=== PATIENT | male | born 2000 | race Caucasian/White ===

== ENCOUNTER 2021-06-22 12:14 | Emergency (ER) | payer OTHER, SELFPAY ==
[2016-01-20 10:18] VITALS: O2SAT 99
[2021-06-22 12:19] VITALS: BP 122/64; RESP 16; TEMP 37.1
--- NOTE | 2021-06-22 13:02 | ED.GENADUL_ITS ---
Discharge Plan Disposition Patient Disposition: HOME Condition: Good Discharge Details Clinical Impression: Hand laceration Primary Care Provider: Chacha Jimenez ED Provider: Windy Rivas Home Meds and New Rx's Prescriptions: No Action No Known Home Meds RF: 0 Discharge Instructions Instructions: Laceration (ED) Additional Instructions: Keep wound clean and dry Try not to bend your fingers, keep covered at work and remove dressing at night secondary dry Keep dry for the next 24 hours after that you may shower but do not submerge your hand in water until sutures are removed Recommend suture removal in 11 to 12 days With spreading redness, fever, worsening pain, return to the emergency room for reevaluation Discharge Data Discharge Date/Time-TO BE ENTERED AT DEPARTURE: 06/22/21 13:19 Medical Decision Making pulse 68, 02 98% Patient appears well, tolerated procedure without incident Suture removal in 11 to 12 days recommended Wound stressed by nursing staff Return precautions discussed and patient understanding HPI General Mode of arrival: ambulatory . Date/Time Provider Initiated Documentation: 06/22/21 12:29 . Limitations to Documentation: no limitations . Information obtained by: patient . HPI Narrative: This 21-year-old male presents with laceration to left hand x3 that accidentally happened while installing heater. Denies strength or sensation change. Tetanus reportedly up-to-date denies history of coagulopathy Related Data Home Medications Medication Instructions Recorded Confirmed Unknown [No Known Home Meds] 06/22/21 06/22/21 Allergies Allergy/AdvReac Type Severity Reaction Status Date / Time No Known Allergies Allergy Verified 06/22/21 12:27 General Stated Complaint: Laceration PRADEEP: 3 Review of Systems Narrative: Review of systems negative x3 aside from where indicated in HPI PFSH Medical History (Updated 06/22/21 @ 13:05 by LUIS CARLOS Paz) Abdominal discomfort in left upper quadrant (01/23/16) Acute respiratory distress syndrome (ARDS) (99) Anxiety (01/23/16) Asthma (06/29/13) exercise induced/ mild At high risk for ineffective coping (01/23/16) Back complaints (03/07/16) Unintended weight loss (02/01/16) Varicocele Social History Smoking/Tobacco Use Status: Former Tobacco Use Smoking risk assessment performed?: Yes Alcohol Intake: current Alcohol Intake frequency: a few times a week Drug use: Socially Do you feel safe at home: Yes Do you feel safe in your relationship?: Yes Exam Const General: healthy appearing Extrem Hand/finger images: 1. 2. 3. Other: Capillary refill intact distally, strength and sensation intact, Course Vital Signs Vital signs: Vital Signs Temperature 37.1 C 06/22/21 12:19 Respiratory Rate 16 06/22/21 12:19 Blood Pressure 122/64 06/22/21 12:19 Temperature 37.1 C 06/22/21 12:19 Temperature Source Skin 06/22/21 12:19 Respiratory Rate 16 06/22/21 12:19 Respiratory Effort 06/22/21 12:29 Blood Pressure 122/64 06/22/21 12:19 Blood Pressure Position Sitting 06/22/21 12:19 Oxygen Delivery Method Room Air 06/22/21 12:19 Oxygen Flow Rate 0 06/22/21 12:19 Pain Level 3 06/22/21 12:19 Procedures Laceration Laceration 1: Site: hand Size (cm): 5 Description: linear Depth: simple, single layer Local Anesthetic: Lidocaine 1% Amount of anesthesia used (mL): 5 Pre-repair: wound explored Skin layer closed with: nylon Size (cm): 4-0 Number of sutures: 7 Technique: simple, interrupted
[2021-06-22 13:18] VITALS: BP 122/64; RESP 16; TEMP 37.1
== END 2021-06-22 13:19 | disposition home or self-care (01) ==
PROVIDERS: Emergency Provider Physician Assistant; PCP Family Medicine
DX: S69.92XA Unspecified injury of left wrist, hand and finger(s), initial encounter (principal); S61.412A Laceration without foreign body of left hand, initial encounter; W26.8XXA Contact with other sharp object(s), not elsewhere classified, initial encounter; Y99.0 Civilian activity done for income or pay
CPT/HCPCS: 12002

== ENCOUNTER 2021-11-15 13:45 | Emergency (ER) | payer OTHER, SELFPAY ==
[2016-01-20 10:18] VITALS: O2SAT 99
[2021-11-15 13:53] VITALS: BP 137/77; PULSE 63; RESP 16; TEMP 36.8; O2SAT 98
--- NOTE | 2021-11-15 13:55 | W.ED.GENAD ---
Discharge Plan Disposition Patient Disposition: HOME Condition: Stable Discharge Details Clinical Impression: Irritation of right eye Primary Care Provider: Cristian Altamirano ED Provider: Tita Real Home Meds and New Rx's Prescriptions: No Action No Known Home Meds RF: 0 Discharge Instructions Instructions: Eye Pain (ED) Additional Instructions: There was no obvious foreign body or abrasion to your eye today. It is possible you had a foreign body in your eye today which caused irritation of your eyelid mucosa which may be the source of your discomfort at this time. It is recommended that you can apply cool compresses to the area a few times daily for 20 minutes at a time. You were given erythromycin to go to apply 4 times daily in the right eye for the next 5 days. Call [facility] today or on their next available day to schedule a follow-up appointment for re-evaluation. Return immediately to the emergency department if you develop any worsening or new concerning symptoms. Referrals: [facility] [Outside] Discharge Data Discharge Physician: Tita Real Medical Decision Making 21-year-old male presents for foreign body sensation to his right upper eyelid after working with a blower with dust at work prior to arrival. Denies blurry vision or use of contacts. Right eye conjunctival injection. With eyelid eversion, no obvious foreign body. Upon further inspection of the mucosa of the right upper inner eyelid, there appears to be a 1 mm white papule with surrounding tenderness and mucosal injection. This appears too smooth and rounded to be a foreign body and appears more c/w papule. Suspect patient may have rubbed the area and caused inflammation and irritation of the mucosa. Attempted to remove with cotton swab and 18-gauge needle but unsuccessful and caused minimal bleeding. There was also no obvious corneal abrasion with fluorescein staining. The area was then flushed with BSS. Discussed with patient that this appears more consistent with local eyelid inflammation and irritation. Tetanus up-to-date. Erythromycin ointment applied and given the tube to go. Advised to follow-up with [facility] for reevaluation. Usual and customary return precautions given prior to discharge. Medical Records Medical records reviewed: Yes I reviewed the patient's medical records. HPI General Mode of arrival: ambulatory. Date/Time Provider Initiated Documentation: 11/15/21 13:51. Limitations to Documentation: no limitations. Information obtained by: patient. HPI Narrative: Pt is a 21yo M who presents to the ED with a complaint of foreign body sensation since this morning at work when he was working with dust and using a blower wearing safety goggles and felt something go into his right eye. He states he rubbed underneath his glasses and the sensation became worse. He states he thought he saw a foreign body underneath his right upper eyelid and attempted to remove it with tweezers but was unsuccessful. He states he is unsure of his tetanus status. He denies any blurry vision. He does not wear contacts or glasses. Related Data Home Medications Medication Instructions Recorded Confirmed Unknown [No Known Home Meds] 06/22/21 11/15/21 Allergies Allergy/AdvReac Type Severity Reaction Status Date / Time No Known Allergies Allergy Verified 11/15/21 13:55 General Stated Complaint: EyeProblem PRADEEP: 4 Review of Systems All systems reviewed & are unremarkable except as noted in HPI and below Constitutional Constitutional: Reports as per HPI, Denies chills and Denies fever(s) Eyes Eyes: Denies blurry vision and Reports other (foreign body ) ENT Ears, Nose, Mouth, and Throat: Denies dizziness, Denies sore throat and Denies throat swelling Cardiovascular Cardiovascular: Denies chest pain and Denies dyspnea Respiratory Respiratory: Denies cough and Denies dyspnea Gastrointestinal Gastrointestinal: Denies abdominal pain, Denies diarrhea and Denies vomiting Genitourinary Genitourinary: Denies hematuria and Denies dysuria Musculoskeletal Musculoskeletal: Denies back pain and Denies numbness Integumentary/Breasts Skin/Breast: Denies lesions and Denies rash Neurologic Neurologic: Denies dizziness, Denies localized weakness and Denies numbness Allergic/Immunologic Allergic/Immunologic: Denies throat swelling PFSH All Active Problems (Updated 11/15/21 @ 14:42 by Tita Real DO) Hand laceration (Acute) Irritation of right eye (Acute) Varicocele (Acute) Anxiety (Chronic 01/23/16) At high risk for ineffective coping (Acute 01/23/16) Back complaints (Chronic 03/07/16) Social History Smoking/Tobacco Use Status: Former Tobacco Use Smoking risk assessment performed?: Yes Alcohol Intake: current Alcohol Intake frequency: a few times a week Drug use: Socially Substance use type: marijuana Do you feel safe at home: Yes Do you feel safe in your relationship?: Yes Exam Const General: cooperative, healthy appearing and no acute distress [facility] Head: normal to inspection Ears: hearing grossly normal bilaterally and external ears normal Mouth: oral mucosae normal Eyes General: appearance normal, both eyes and all related structures Periorbital: periorbital findings normal Conjunctivae: conjunctival abnormality right conjunctival injection diffuse Sclera: sclerae normal Cornea: corneas normal Pupils: PERRL EOM: EOM intact bilaterally Eyes/upper lids images: 1. 1 mm circular smooth white appearing papule underneath the right lateral upper eyelid. There is surrounding mucosal injection. There is no obvious foreign body with additional eyelid eversion. Neck Neck: normal visual inspection Resp Effort & Inspection: normal respiratory effort and able to speak in complete sentences Cardio Rate: regular rate Skin General skin exam: no rashes or lesions noted Neuro General: patient alert, patient awake and patient oriented x3 Motor: muscle tone normal throughout Extrem General: normal to inspection and full ROM Psych Appearance: grossly normal Affect: normal affect Course Vital Signs Vital signs: Vital Signs Temperature 98.2 F 11/15/21 13:53 Pulse 63 11/15/21 13:53 Respiratory Rate 16 11/15/21 13:53 Blood Pressure 137/77 11/15/21 13:53 Pulse Oximetry 98 11/15/21 13:53 Temperature 98.2 F 11/15/21 13:53 Temperature Source Temporal Artery Scan 11/15/21 13:53 Pulse 63 11/15/21 13:53 Respiratory Rate 16 11/15/21 13:53 Blood Pressure 137/77 11/15/21 13:53 Blood Pressure Position Sitting 11/15/21 13:53 Pulse Oximetry 98 11/15/21 13:53 Oxygen Delivery Method Room Air 11/15/21 13:53 Oxygen Flow Rate 0 11/15/21 13:53
[2021-11-15] MEDS: Fluorescein STRIPS 100/BOX 1 MG (14:44)
[2021-11-15] MEDS: Erythromycin Ophth Oint 3.5 GM TUBE OU (14:44)
[2021-11-15] MEDS: Balanced Salt Solution 15 ML BTL (14:44)
[2021-11-15] MEDS: Tetracaine 0.5% 4 ML BTL (14:44)
== END 2021-11-15 14:48 | disposition home or self-care (01) ==
PROVIDERS: Emergency Provider Physician Assistant; PCP Family Medicine
DX: H53.141 Visual discomfort, right eye (principal)
CPT/HCPCS: 99283

== ENCOUNTER 2023-01-08 15:00 | Outpatient (REF) | payer OTHER, SELFPAY ==
[2016-01-20 10:18] VITALS: O2SAT 99
[2023-01-08 12:53] LABS: HCT 48.2 % (40.0-50.0); HGB 16.6 g/dL (13.5-17.5); MCHC 34.4 % (32.0-36.0); MCV 84 fL (80-95); MPV 10.1 fL (8.0-11.0); Platelet Count 304 10^3/uL (130-400); RBC 5.72 10^6/uL (4.36-5.78); RDW 11.9 % (11.8-14.1); RDW-SD 35.6 fL; WBC 6.04 10^3/uL (4.4-10.8)
[2023-01-08 13:44] LABS: TSH (W/Ref FT4) 1.16 uIU/mL (0.36-3.74)
[2023-01-09 09:34] LABS: Lyme Ab w Rflx to Lyme Confirm Negative (Negative)
== END 2023-01-08 15:01 | disposition home or self-care (01) ==
LOC: LBN 15:00
PROVIDERS: PCP Nurse Practitioner Family; Visit Provider Nurse Practitioner Family
DX: R53.83 Other fatigue (principal); M25.59 Pain in other specified joint; M79.18 Myalgia, other site
CPT/HCPCS: 85027; 84443; 86618

== ENCOUNTER 2024-01-22 05:23 | Outpatient (CLI) | payer OTHER, SELFPAY ==
[2016-01-20 10:18] VITALS: O2SAT 99
[2024-01-22 09:24] LABS: ALT 30 U/L (16-63); AST 21 U/L (15-37); Albumin 4.2 g/dL (3.4-5.0); Alkaline Phosphatase 78 U/L (46-116); BUN 15 mg/dL (7-18); Bilirubin, Total 0.7 mg/dL (0.2-1.0); Calcium 9.3 mg/dL (8.5-10.1); Chloride 103 mmol/L (98-107); Estimated GFR 107.78 (mL/min/1.73m2); Glucose 105 mg/dL (74-106); Lipase 18 U/L (16-77); Potassium 4.4 mmol/L (3.5-5.1); Sodium 140 mmol/L (136-145); Total Protein 7.5 g/dL (6.4-8.2)
== END 2024-01-22 05:24 | disposition home or self-care (01) ==
LOC: LBO 05:23
PROVIDERS: PCP Nurse Practitioner Family; Visit Provider Nurse Practitioner Family
DX: R10.12 Left upper quadrant pain (principal)
CPT/HCPCS: 36415; 80053; 83690

== ENCOUNTER 2024-08-22 08:59 | Emergency (ER) | payer OTHER, SELFPAY ==
[2016-01-20 10:18] VITALS: O2SAT 99
[2024-08-22 09:04] VITALS: BP 123/73; PULSE 80; RESP 16; TEMP 36.6; O2SAT 98
--- NOTE | 2024-08-22 09:14 | ED.GENADUL_ITS ---
Discharge Plan Disposition Patient Disposition: Home Condition: Stable Discharge Details Chief Complaint: Orthopedic Clinical Impression: Contusion of right tibia Primary Care Provider: Aashish Ashton ED Provider: Philip Antunez Home Meds and New Rx's Prescriptions: No Action No Known Home Meds Discharge Instructions Additional Instructions: Your x-ray did not show any concerning findings. You can take 1000 mg of acetaminophen and 600 mg of ibuprofen every 6 hours as needed If you feel more ill or have severe worsening pain return to the emergency department for reevaluation If you are still in pain in a week follow-up with your primary care provider HPI General Mode of arrival: ambulatory . Date/Time Provider Initiated Documentation: 08/22/24 09:07 . Limitations to Documentation: no limitations . Information obtained by: patient . History of Present Illness 24 year old M presents to the emergency department with the chief complaint of right tibia pain, described as moderate, Quality is described as aching, and is localized to the right and lower extremity. Patient reports no radiation. Patient started experiencing this day(s) (1) and it has been constant. No relieving factors improve symptom(s), No exacerbating factors reported . Patient notes no other symptoms.. Patient did receive the following treatments prior to arrival, none Related Data Home Medications ?Medication ?Instructions ?Recorded ?Confirmed Unknown [No Known Home Meds] 06/22/21 08/22/24 Allergies Allergy/AdvReac Type Severity Reaction Status Date / Time No Known Allergies Allergy Verified 08/22/24 09:06 General Stated Complaint: Orthopedic PRADEEP: 4 Review of Systems All systems reviewed & are unremarkable except as noted in HPI and below Constitutional Constitutional: Denies chills, Denies fever(s) and Denies weakness Cardiovascular Cardiovascular: Denies chest pain and Denies dyspnea Respiratory Respiratory: Denies dyspnea Gastrointestinal Gastrointestinal: Denies abdominal pain and Denies vomiting Neurologic Neurologic: Denies weakness Exam Const General: no acute distress Orientation: alert HENMT Head: normal to inspection Ears: external ears normal General nose exam: external nose normal Mouth: moist mucous membranes Eyes General: appearance normal, both eyes and all related structures Neck Neck: normal visual inspection Resp Effort & Inspection: normal respiratory effort and able to speak in complete sentences Cardio Rate: regular rate Skin General skin exam: no rashes or lesions noted Neuro General: patient alert and patient oriented x3 Extrem General: normal to inspection, full ROM and capillary refill normal Psych Mental Status: mental status grossly normal Course Vital Signs Vital signs: Vital Signs Temperature 36.6 C 08/22/24 09:04 Pulse 80 08/22/24 09:04 Respiratory Rate 16 08/22/24 09:04 Blood Pressure 123/73 08/22/24 09:04 Pulse Oximetry 98 08/22/24 09:04 Temperature 36.6 C 08/22/24 09:04 Temperature Source Oral 08/22/24 09:04 Pulse 80 08/22/24 09:04 Respiratory Rate 16 08/22/24 09:04 Respiratory Effort Normal, Non-Labored 08/22/24 09:07 Blood Pressure 123/73 08/22/24 09:04 Pulse Oximetry 98 08/22/24 09:04 Oxygen Delivery Method Room Air 08/22/24 09:04 Oxygen Flow Rate 0 08/22/24 09:04 Medical Decision Making 24-year-old male who denies any chronic medical problems comes in with right lower leg injury. He says he was cutting a log yesterday and when it was cut it started rolling with his foot on it and then he moved his leg and the log rolled into his right posterior leg. He denies hitting his head or other injuries. He feels well otherwise other than having some right anterior tibia pain. He has no visible or palpable deformity in the leg. He has point tenderness in the mid anterior tibia. No ankle or foot pain. He has no pain in the posterior ankle near the Achilles tendon insertion. He has full range of motion of the ankle with intact sensation and pulses. I suspect contusion but will obtain x-rays of the tib-fib to evaluate for possible fracture. X-ray on my read and radiology read is negative. Patient is stable ambulating without a limp. Advised likely contusion, he will follow-up with his PCP if not improving within a week and return precautions given Differential Diagnosis Differential Diagnosis: Contusion, fracture, sprain Quality:SDOH Health Related Social Needs: No Data to Display PFSH All Active Problems (Updated 08/22/24 @ 10:02 by Philip Antunez MD) Contusion of right tibia (Acute) Right temporomandibular joint disorder, unspecified (Acute) Left upper quadrant abdominal pain (Acute) Spermatocele (Acute) left Left varicocele (Acute) Medical History (Updated 08/22/24 @ 10:02 by Philip Antunez MD) Arthralgia Acute respiratory distress syndrome (ARDS) (99) Social History (Updated 06/29/24 @ 13:25 by Dayan Hunt) Smoking/Tobacco Use Status: Former Tobacco Use tobacco type: e-cigarettes Quit Date: 11/24/21 Second Hand Exposure: No Smoking risk assessment performed?: Yes Alcohol Intake: current Alcohol Intake frequency: a few times a week Alcohol type: beer Drug use: Occasionally Substance use type: marijuana Do you feel safe at home: Yes Do you feel safe in your relationship?: Yes PAWSS Have you Been Recently Intoxicated or Drunk Within the Last 30 days?: No Have you Ever Experienced Previous Episodes of Alcohol Withdrawal?: No Have you ever Experienced Withdrawal Seizures?: No Have you ever Experienced Delirium Tremens(DT)s?: No Have you ever undergone Alcohol Rehabilitation Treatment (i.e, inpt ot outpatient treatment programs)?: No Have you ever Experienced Blackouts?: No Have you ever Combined Alcohol with other Downers within the last 90 days?: No Have you ever Combined Alcohol with any other Substance of Abuse during the last 90 days?: No Positive Blood Alcohol level on Presentation? [PCS.BAL]: No Result: 0
--- NOTE | 2024-08-22 09:36 | DI.RAD_ITS ---
Exam(s) XR TIB/FIB RT EXAM: XR TIB/FIB RT CLINICAL HISTORY: pain s/p log hitting his leg. TECHNIQUE: 2D digital imaging was performed of the right tibia and fibula. Three images were obtaine d. AP and lateral views were obtained. COMPARISON: No exams were available for comparison FINDINGS: BONES: No acute fracture is present. No bony destructive lesion is seen. Visualized portion of knee a nd ankle joints are unremarkable. The distal aspect of the right fibula is not included on the AP vie w. SOFT TISSUE: Normal. IMPRESSION: Within the limits of the examination, no acute fracture or dislocation is identified. DATA REPOSITORY: RADIATION DOSE DELIVERED:
== END 2024-08-22 10:22 | disposition home or self-care (01) ==
PROVIDERS: Emergency Provider Emergency Medicine; PCP Nurse Practitioner Family
DX: S80.11XA Contusion of right lower leg, initial encounter (principal); W23.0XXA Caught, crushed, jammed, or pinched between moving objects, initial encounter
CPT/HCPCS: 99283; 73590

== ENCOUNTER 2025-03-21 13:49 | Emergency (ER) | payer SELFPAY ==
[2016-01-20 10:18] VITALS: O2SAT 99
[2025-03-21 13:53] VITALS: BP 120/87; PULSE 60; RESP 20; TEMP 36.4; O2SAT 98
--- NOTE | 2025-03-21 14:04 | W.ED.GENAD ---
Discharge Plan Disposition Patient Disposition: Home Condition: Stable Discharge Details Chief Complaint: Laceration Clinical Impression: Laceration of left elbow Primary Care Provider: Aashish Ashton ED Provider: Philip Antunez Home Meds and New Rx's Prescriptions: No Action No Known Home Meds Discharge Instructions Additional Instructions: Keep the wound clean and if it becomes dirty you can clean with soap and water using gentle scrubbing. Return in 7 to 10 days for evaluation for suture removal. Return sooner if signs of infection develop such as spreading redness from the wound or yellow-white discharge. HPI General Mode of arrival: ambulatory. Date/Time Provider Initiated Documentation: 03/21/25 13:57. Limitations to Documentation: no limitations. Information obtained by: patient. History of Present Illness 25 year old M presents to the emergency department with the chief complaint of left elbow laceration, described as mild, Quality is described as aching, Patient started experiencing this hour(s) (1) and it has been constant. No relieving factors improve symptom(s), No exacerbating factors reported . Patient notes no other symptoms.. Patient did receive the following treatments prior to arrival, none Related Data Home Medications ?Medication ?Instructions ?Recorded ?Confirmed Unknown [No Known Home Meds] 06/22/21 03/21/25 Allergies Allergy/AdvReac Type Severity Reaction Status Date / Time No Known Allergies Allergy Verified 03/21/25 13:57 General Stated Complaint: Laceration PRADEEP: 4 Review of Systems All systems reviewed & are unremarkable except as noted in HPI and below Constitutional Constitutional: Denies chills, Denies fever(s) and Denies weakness Gastrointestinal Gastrointestinal: Denies vomiting Neurologic Neurologic: Denies weakness Exam Const General: no acute distress Orientation: alert [facility] Head: normal to inspection Ears: external ears normal General nose exam: external nose normal Mouth: moist mucous membranes Eyes General: appearance normal, both eyes and all related structures Neck Neck: normal visual inspection Resp Effort & Inspection: normal respiratory effort and able to speak in complete sentences Cardio Rate: regular rate Skin General skin exam: no rashes or lesions noted Neuro General: patient alert and patient oriented x3 Extrem General: full ROM and capillary refill normal Psych Mental Status: mental status grossly normal Course Vital Signs Vital signs: Vital Signs Temperature 36.4 C 03/21/25 13:53 Pulse 60 03/21/25 13:53 Respiratory Rate 20 03/21/25 13:53 Blood Pressure 120/87 03/21/25 13:53 Pulse Oximetry 98 03/21/25 13:53 Temperature 36.4 C 03/21/25 13:53 Pulse 60 03/21/25 13:53 Respiratory Rate 20 03/21/25 13:53 Blood Pressure 120/87 03/21/25 13:53 Blood Pressure Position Sitting 03/21/25 13:53 Pulse Oximetry 98 03/21/25 13:53 Oxygen Delivery Method Room Air 03/21/25 13:53 Oxygen Flow Rate 0 03/21/25 13:53 Procedure Laceration Laceration 1: Date of Procedure: 03/21/25 Time of procedure: 14:19 Patient Consented: Verbally Site: upper extremity Side (If applicable): left Description: other (half [place] shape) Depth: simple, single layer Pre-repair:: wound explored and irrigated extensively Skin layer closed with: nylon Suture size: 5-0 Number of sutures:: 3 Technique: simple, interrupted Medical Decision Making 25-year-old male comes in with a left elbow laceration. He says he was working on some piping when his arm slipped and his left elbow hit a cut height. He did not fall or hit his head or have other injuries. He is well-appearing on exam. He has a 1 cm elliptical shaped laceration on the lateral left elbow. Is superficial, there is no bone exposure. He has full range of motion of the elbow without any pain. Will close the wound with sutures. Given lack of bony tenderness deformity I do not feel x-rays are indicated. Wound closed successfully without complications. He was advised to return in 7 to 10 days for evaluation for suture removal and sooner if signs of infection develop Quality:SDOH Health Related Social Needs: No Data to Display PFSH All Active Problems (Updated 03/21/25 @ 14:21 by Philip Antunez MD) Laceration of left elbow (Acute) Right temporomandibular joint disorder, unspecified (Acute) Left upper quadrant abdominal pain (Acute) Spermatocele (Acute) left Left varicocele (Acute) Medical History (Updated 03/21/25 @ 14:21 by Philip Antunez MD) Arthralgia Acute respiratory distress syndrome (ARDS) (99) Social History (Updated 06/29/24 @ 13:25 by Dayan Hunt) Smoking/Tobacco Use Status: Former Tobacco Use tobacco type: e-cigarettes Quit Date: 11/24/21 Second Hand Exposure: No Smoking risk assessment performed?: Yes Alcohol Intake: current Alcohol Intake frequency: a few times a week Alcohol type: beer Drug use: Occasionally Substance use type: marijuana Do you feel safe at home: Yes Do you feel safe in your relationship?: Yes PAWSS Have you Been Recently Intoxicated or Drunk Within the Last 30 days?: Yes Have you Ever Experienced Previous Episodes of Alcohol Withdrawal?: No Have you ever Experienced Withdrawal Seizures?: No Have you ever Experienced Delirium Tremens(DT)s?: No Have you ever undergone Alcohol Rehabilitation Treatment (i.e, inpt ot outpatient treatment programs)?: No Have you ever Experienced Blackouts?: No Have you ever Combined Alcohol with other Downers within the last 90 days?: No Have you ever Combined Alcohol with any other Substance of Abuse during the last 90 days?: No Positive Blood Alcohol level on Presentation? [PCS.BAL]: No Evidence of Increased Autonomic Activity (i.e. HR>120, tremor, sweating, agitation, nausea)?: No Result: 1
[2025-03-21] MEDS: Tetanus & Diphtheria Tox,ADULT 0.5 ML VIAL IM (14:31)
[2025-03-21 14:34] VITALS: BP 125/74; PULSE 60; RESP 16; O2SAT 99
== END 2025-03-21 14:38 | disposition home or self-care (01) ==
LOC: ER 14:25
PROVIDERS: Emergency Provider Emergency Medicine; PCP Nurse Practitioner Family
DX: S51.012A Laceration without foreign body of left elbow, initial encounter (principal); W26.8XXA Contact with other sharp object(s), not elsewhere classified, initial encounter; Y93.H3 Activity, building and construction; Y92.89 Other specified places as the place of occurrence of the external cause; Z87.891 Personal history of nicotine dependence; Z23 Encounter for immunization
CPT/HCPCS: 12001; 90471; 90714; 99283